=== PATIENT | male | born 1960 | race Caucasian/White ===

== ENCOUNTER 2021-08-31 08:46 | Day surgery (SDC) | payer BC ==
[2021-08-28 12:05] LABS: Absolute Lymphocytes (CBC) 1.3 K/uL (0.7-4.9); Hematocrit 42.5 % (39.6-49.0); Lymphocytes % 19.5 % (15.3-44.8); MCV 85.8 fL (80-100); MPV 7.9 fL (7.6-11.3); RBC Red Blood Cell Count 4.96 M/uL (4.33-5.43)
[2021-08-28 12:16] LABS: SARS-CoV-2 Antigen Rapid Res Negative (Negative)
[2021-08-28 12:18] LABS: Potassium 4.1 mmol/L (3.5-5.1)
[2021-08-31] MEDS ORDERED: CEFAZOLIN 2 GM IN 0.9% NACL 2 GM/100 ML BAG ONE (08:59)
[2021-08-31] MEDS ORDERED: Ringers Lactate 1,000 ML IV ONE ×2 (08:59→12:40)
[2021-08-31] MEDS ORDERED: BUPIVACA 0.5%/EPI 0.0005%/PF 30 ML VIAL ONE (10:13)
[2021-08-31] MEDS ORDERED: CELECOXIB 100 MG CAPSULE ONE (10:40)
[2021-08-31] MEDS ORDERED: ACETAMINOPHEN 500 MG TAB ONE (10:41)
[2021-08-31] MEDS ORDERED: MIDAZOLAM HCL 2 MG/2 ML INJ ONE (11:20)
[2021-08-31] MEDS ORDERED: propofoL 200 MG/20 ML VIAL IV ONE (11:20)
[2021-08-31] MEDS ORDERED: LIDOCAINE 1% MPF 5 ML VIAL ONE (11:20)
[2021-08-31] MEDS ORDERED: FENTANYL CITR 100 MCG/2 ML ONE (11:20)
[2021-08-31] MEDS ORDERED: NS 0.9% VIAL 10 ML ONE ×2 (11:33→12:15)
[2021-08-31] MEDS ORDERED: dexAMETHasone 10 MG/ML VIAL ONE (11:47)
[2021-08-31] MEDS ORDERED: KETOROLAC 30 MG/ML INJ ONE (11:51)
[2021-08-31] MEDS ORDERED: ONDANSETRON 4 MG/2 ML VIAL ONE (11:51)
[2021-08-31] MEDS ORDERED: EPHEDRINE SULF 50 MG/ML VIAL ONE (12:15)
[2021-08-31] MEDS ORDERED: LIDOCAINE 1% MPF 2 ML AMPULE ONE (12:43)
--- NOTE | 2021-08-31 12:49 | EKG ---
Test Date: 2021-08-28 Test Time: 11:44:43 [employer]: KAY MEASUREMENT RESULTS: Intervals: Rate: 66 AR: 140 QRSD: 104 QT: 394 QTc: 413 [place]: P: 28 AR: 140 QRS: 12 T: 46 INTERPRETIVE STATEMENTS: Normal sinus rhythm Normal ECG Compared to ECG 03/16/2019 14:56:04 No significant changes Electronically Signed On 08-31-21 12:45:18 CDT by Kameron Loyola
--- NOTE | 2021-08-31 13:09 | P.OP ---
Preoperative diagnosis: Recurrent RIGHT incarcerated inguinal hernia Postoperative diagnosis: Recurrent RIGHT incarcerated inguinal hernia Primary procedure: Open RIGHT inguinal hernia repair with mesh Anesthesia: GETA + Local Estimated blood loss: <5cc Specimen: cord lipoma Findings: pantaloon hernia, anatomy distorted by scar Complications: None Implants: Bard Perfix Medium hernia plug and patch Transferred to: Recovery Room Condition: Good
[2021-08-31] MEDS ORDERED: HYDROMORPHONE HCL 1 MG/ML INJ ONE (13:42)
[2021-08-31 14:40] VITALS: BP 134/99; TEMP 96.3; O2SAT 94
[2021-08-31] MEDS ORDERED: HYDROCODONE/APAP 5/325 MG TAB PO ONE (15:00)
--- NOTE | 2021-09-01 00:36 | OP ---
Date of Procedure: 08/31/2021 Surgeon: Daniel Galindo MD, Preoperative Diagnosis: Recurrent right incarcerated inguinal hernia. Postoperative Diagnosis: Recurrent right incarcerated inguinal hernia. Procedure Performed: Open right inguinal hernia repair with mesh. Anesthesia: General endotracheal plus local with 0.5% Marcaine with epinephrine. Estimated Blood Loss: Less than 5 cc. Specimen: Cord lipoma. Findings: Combined direct indirect/Pantaloon type inguinal hernia on the right, significant scar dis torted the normal anatomic landmarks. In addition, the external oblique aponeurosis was essentially obliterated. Complications: None. Implants: Bard medium PerFix plug and patch hernia repair system. Disposition: The patient was transferred to the recovery room in good condition. Procedure In Detail: After informed consent was obtained, the patient was brought to the operating r oom prepped and draped in the usual sterile fashion. After adequate anesthesia was achieved, an area of the right inguinal area was anesthetized with 0.5% Marcaine and sharply incised with a 15 blade d own through previous incision and dissection continued down using electrocautery to expose the remnan t of the external oblique aponeurosis, which was essentially replaced by scar tissue. This was opene d sharply using a 15 blade down to subcutaneous tissues. I then opened the remainder of the scar tis margy using electrocautery. The ilioinguinal nerve was not visualized through the significant scar tis margy, which was appreciated in the area. I encircled the spermatic cord structures. A large cord lip loyd was emanating from the cord structures. This was dissected free using electrocautery and ligated using a 2-0 Vicryl suture in a stick tie and reduced to the preperitoneal position of the indirect i nguinal hernia. At this point, a defect in the floor of the inguinal canal was appreciated consisten t with a direct hernia. This was dissected circumferentially free from all surrounding tissues and t he tissue was then inspected and found to be viable at this point. The spermatic cord and structures were protected throughout the procedure. At this point, I brought in a medium Bard PerFix plug syst em and placed it in the preperitoneal space of the indirect inguinal hernia and unfurled it at this p oint, securing it circumferentially around using 2-0 PDS suture with good position of the mesh. At t his point, the area was irrigated and then dried. At this point, I then turned my attention to the d irect inguinal hernia, which was reduced. I then placed several 2-0 PDS sutures to secure the mesh, which was the patch after being sized appropriately to the pubic tubercle medially and then on the me dial and lateral shelving edge of the internal oblique aponeurosis as well as the underside of the in guinal ligament and I reconstituted the deep inguinal ring at this point. At this point, the hernia was reduced in its entirety without any additional measures. Hernias were imbricated and as such, no hernia sacs were ligated at this point. The area was copiously irrigated. I then closed the residu al external oblique aponeurosis with a running 3-0 Vicryl suture and the deep dermal layer was closed with interrupted 3-0 Vicryl suture and the skin was closed with 4-0 Monocryl in a running fashion. Dermabond placed on top. The patient tolerated the procedure without evidence of complication and tr ansferred to PACU in good condition. All counts were correct at the end of the case. DEIDRE/SHITAL Voice ID: [id number] Report ID: [id number]
== END 2021-08-31 15:39 | disposition home or self-care (01) ==
LOC: OR 08:46
PROVIDERS: ATTEND Surgery
PROC: 0YU50JZ Supplement Right Inguinal Region with Synthetic Substitute, Open Approach (ICD-10-PCS; principal; 2021-08-31 11:30)
DX: K40.91 Unilateral inguinal hernia, without obstruction or gangrene, recurrent (principal); Z20.822 Contact with and (suspected) exposure to COVID-19
CPT/HCPCS: 93005; 85025; 80048; 36415; 82947; 88302; 87811; 49520; J2704; J2250; J3010; J1100; J1170; J0690; J7120 ×2; J2405

== ENCOUNTER 2021-09-15 08:23 | Emergency (ER) | payer BC ==
[2021-09-15] MEDS ORDERED: MECLIZINE HCL 12.5 MG TAB ONE (08:59)
[2021-09-15 09:16] LABS: Albumin 3.8 g/dL (3.4-5.0); Bilirubin Direct 0.1 mg/dL (0-0.2); Bilirubin Total 0.5 mg/dL (0.2-1.0); Magnesium 2.1 mg/dL (1.8-2.4); Potassium 3.8 mmol/L (3.5-5.1); Protein, Total 8.2 g/dL (6.4-8.2); Troponin High Sensitivity 5.4 pg/mL (<58.9)
[2021-09-15 09:26] LABS: Absolute Lymphocytes (CBC) 1.1 K/uL (0.7-4.9); Hematocrit 44.2 % (39.6-49.0); Lymphocytes % 16.5 % (15.3-44.8); MCV 83.8 fL (80-100); MPV 7.9 fL (7.6-11.3); RBC Red Blood Cell Count 5.27 M/uL (4.33-5.43)
--- NOTE | 2021-09-15 09:26 | RAD REPORT ---
EXAM DESCRIPTION: RAD - Chest Single View - 09/15/2021 9:17 am CLINICAL HISTORY: dizziness, hemptysis COMPARISON: Portable January 2009 TECHNIQUE: AP portable chest image was obtained 09/15/2021 9:17 am . FINDINGS: Lung volumes are low. No peripheral mass or consolidation. Left base is slightly hazy. Tala or imaging showed scarring in the lower left lung field. When adjusting for under penetrated techniqu e and lower lung volume, left base is not clearly different. Right hilar region is accentuated probab ly due to low lung volume. Heart and vasculature are normal. No measurable pleural effusion and no pn eumothorax. No acute bony abnormality seen. No acute aortic findings suspected. IMPRESSION: As detailed above, no acute cardiopulmonary finding seen when adjusting for differences in inspiration and film technique. If the patient's hemoptysis remains unexplained, CT chest imaging could be performed to evaluate for possible mediastinal mass or endobronchial lesion.
[2021-09-15 09:41] LABS: Protime INR 1.14
--- NOTE | 2021-09-15 11:00 | RAD REPORT ---
EXAM DESCRIPTION: CT - Head Brain Wo Cont - 09/15/2021 10:27 am CLINICAL HISTORY: dizziness COMPARISON: Head Brain Wo Cont dated 03/16/2019 TECHNIQUE: Axial 5 mm thick images of the head were obtained without IV contrast. All CT scans are performed using dose optimization technique as appropriate and may include automated exposure control or mA/KV adjustment according to patient size. FINDINGS: No intracranial hemorrhage, mass, edema or shift of mid-line structures. No acute infarcti on changes seen. No abnormal extra-axial fluid collections. No significant atrophy changes are presen t. Ventricles are normal in size. No significant chronic ischemic change. Intracranial findings are s imilar to the 2019 comparison. Mastoid air cells and visualized portions of the paranasal sinuses are clear. No acute bony findings. IMPRESSION: Negative noncontrast CT head examination for acute finding. No significant change from the 2020 comparison.
--- NOTE | 2021-09-15 11:10 | RAD REPORT ---
EXAM DESCRIPTION: CT - Chest For Pe Angio - 09/15/2021 10:29 am CLINICAL HISTORY: hemoptysis COMPARISON: Chest Single View dated 09/15/2021 TECHNIQUE: Dynamically enhanced 3 mm thick images of the chest were obtained during administration o f approximately 150mL Isovue 370 IV contrast. Coronal and oblique MIP reconstruction images were gene rated and reviewed. Exam utilizes a protocol to evaluate the pulmonary arterial tree. All CT scans are performed using dose optimization technique as appropriate and may include automated exposure control or mA/KV adjustment according to patient size. FINDINGS: No pulmonary emboli are identified. The aorta as imaged shows no acute or suspicious finding. No pericardial thickening or effusion. In the anterior superior aspect of the right upper lobe (image 35/134) there is a 2.7 cm AP x 2.1 cm TR lobulated mass. There is spiculation seen along the anterior superior aspect. A 6 mm nodule is pre sent in the right middle lobe. There is bilateral dependent atelectasis. In the posterolateral left c hest there is a pleural based elliptically shaped mass measuring 4.1 cm CC x 4.5 cm AP x 2.7 cm TR. T he adjacent fourth rib shows bone loss along the inner cortex. There is adjacent pleural thickening p resent. No pleural effusion or pleural thickening. Approximately 3.5 centimeter area of confluent abnormal soft tissue is present in the right hilum ext ending superiorly towards the previously detailed pulmonary nodule. This is along the anterior aspect of the right mainstem bronchus. This is likely either a primary mass or summation of multiple hilar lymph nodes. No large endobronchial lesion identifiable. No abnormal axillary lymphadenopathy. Limited upper abdomen imaging shows no adrenal mass. IMPRESSION: No pulmonary emboli identified. Approximately 4 centimeter elliptically shaped pleural-based mass upper left chest with erosive liao e to the adjacent fourth rib.Malignant etiology is favored. Right upper lobe spiculated and lobulated 2.7 cm mass could be primary or metastatic. Approximately 3.5 cm area of confluent lymphadenopathy or primary mass of the right hilum.
--- OUTSIDE RECORDS SUMMARY | 2021-09-15 11:28 | XMS REPORT | Continuity of Care Document ---
:1960 Author Organization [facility] t Address [address] [place] [address] [address]. [address]. [address] [place] [address] Care Team Providers Name Role Phone Vlad Christopher MD Primary Care Physician WANDA PEPE Attending Clinician Unavailable SISSON_Keren Attending Clinician Unavailable Leonard Cabrera Attending Clinician [phone] JAMES ARELLANO Attending Clinician Unavailable James Norris Attending Clinician DANIELLA ROSE Attending Clinician Unavailable Lab, Adc Fam Pob I Attending Clinician Unavailable Daniella Moran Attending Clinician Doctor Unassigned, [place] Attending Clinician Unavailable DEBORAH_Keren Admitting Clinician Unavailable Payers Payer Name Policy Type Policy Number Effective Date Expiration Date [place] PPO/POS - [employer] [id number] 2005 2018 00:00:00 00:00:00 PPO/EPO - BCBS [id number] [facility] [id number] 2021 ADVANTAGE (O) 00:00:00 [facility] [id number] 2018 00:00:00 Problems Condition Condition Condition Status Onset Resolution Last Treating Co mments Source Name Details Category Date Date Treatment Clinician Date Nocturnal Nocturnal Disease Active [facility] enuresis enuresis 1-17 Colleg e 00:00: of 00 Medicin e Kidney Kidney Disease Active 2010-02 [facility] stone stone 2-13 College 00:00: of 00 Medicin e Unspecifie Unspecifie Disease Active 2009-02 [facility] 14 [facility] essential essential 00:00: of hypertensi hypertensi 00 Me dicin on on e Bladder Bladder Disease Active 2009-02 [facility] cancer cancer 2-14 [facility] (HCCode) (HCCode) 00:00: of 00 Medicin e Pulmonary Pulmonary Disease Active 2009-02 [facility] nodule nodule 214 [place] 00:00: of 00 Medicin e Allergies, Adverse Reactions, Alerts Allergy Allergy Status Severity Reaction(s) Onset Inactive Treating Comm ents Source Name Type Date Date Clinician NO KNOWN Drug Active [facility] ALLERGIE Class ity of [facility] Social History Social Habit Start Date Stop Date Quantity Comments Source History of tobacco Cigarette Smoker [facility] use of Medicine Cigarettes smoked 2021-07-14 2021-07-14 [facility] current (pack per 00:00:00 00:00:00 of Medi day) - Reported Cigarette 2021-07-14 2021-07-14 [facility] pack-years 00:00:00 00:00:00 of Medicine Tobacco use and 2021-07-14 2021-07-14 Smokeless tobacco [facility] exposure 00:00:00 00:00:00 non-user of Medicine Alcohol intake 2021-07-14 2021-07-14 Current [facility] Col lege 00:00:00 00:00:00 non-drinker of of Medicin e alcohol (finding) Tobacco Comment 2021-07-14 2021-07-14 quit 11 years ago [facility] 00:00:00 00:00:00 of Medicine Exposure to 2021-07-03 2021-07-13 Not sure [facility] Natalya e SARS-CoV-2 (event) 00:00:00 13:26:00 of Med icine Sex [birth year] [facility] Co llege 00:00:00 00:00:00 of Medicine Smoking Status Start Date Stop Date Source Unknown if ever smoked [facility] Ex-smoker 2021-07-14 00:00:00 2021-07-14 00:00:00 [facility] Keren olleparul of Medicine Medications Ordered Filled Start Stop Current Ordering Indication Dosage Frequency Signature Comments Components Source Medication Medication Date Date Medication? Clinician (SIG) Name Name lisinopril Yes 10mg Take 10 mg [facility] (PRINIVIL, 5-31 by mouth Colle ge ZESTRIL) 10 08:20: daily. of MG tablet 56 Medicin e lisinopril Yes 10mg Take 10 mg [facility] (PRINIVIL, 1-14 by mouth Colle ge ZESTRIL) 10 19:07: daily. of MG tablet 43 Medicin e lisinopril Yes 10mg Take 10 mg [facility] (PRINIVIL, 1-14 by mouth Colle ge ZESTRIL) 10 13:07: daily. of MG tablet 43 Medicin e sildenafil 2009-02 Yes Use as [facility] citrate 2-14 directed. [facility] ([facility]) 00:00: of 100 MG 00 Medicin tablet e sildenafil 2009-02 Yes Use as [facility] citrate 2-14 directed. [facility] ([facility]) 00:00: of 100 MG 00 Medicin tablet e sildenafil 2009-02 Yes Use as [facility] citrate 2-14 directed. [facility] ([facility]) 00:00: of 100 MG 00 Medicin tablet e Vital Signs Vital Name Observation Time Observation Value Comments Source Systolic blood 2021-07-14 13:20:00 160 mm[Hg] [facility] Medicine Diastolic blood 2021-07-14 13:20:00 106 mm[Hg] [facility] Medicine Heart rate 2021-07-14 13:20:00 80 /min [facility] Body temperature 2021-07-14 13:20:00 36.44 [place] [facility] Body height 2021-07-14 13:20:00 185.4 cm [facility] Body weight 2021-07-14 13:20:00 97.523 kg [facility] BMI 2021-07-14 13:20:00 28.37 kg/m2 [facility] Systolic blood 2020-02-28 19:07:00 132 mm[Hg] [facility] Medicine Diastolic blood 2020-02-28 19:07:00 88 mm[Hg] [facility] Medicine Heart rate 2020-02-28 19:07:00 74 /min [facility] Respiratory rate 2020-02-28 19:07:00 17 /min [facility] Body height 2020-02-28 19:07:00 185.4 cm [facility] Body weight 2020-02-28 19:07:00 97.07 kg [facility] BMI 2020-02-28 19:07:00 28.23 kg/m2 [facility] Procedures Procedure Date / Time Performed Performing Clinician Sour e AMB REF TO GENERAL 2021-07-14 09[facility] AMB REF TO GENERAL 2021-07-14 09:35:21 [facility] Plan of Care Planned Activity Planned Date Details Comments Source Future Scheduled 2021-07-14 Screening for malignant [facility] Test 08:20:47 neoplasm of colon of Medicin e (procedure) [code = 829211474] Future Scheduled 2021-07-14 COVID-19 Vaccine (#1) [facility] Test 08:20:47 [code = COVID-19 of Medicine Vaccine (#1)] Future Scheduled 2021-07-14 TETANUS SHOT (ADULT) [facility] College Test 08:20:47 [code = TETANUS SHOT of Medi cine (ADULT)] Future Scheduled 2021-07-14 BMI FOLLOW UP PLAN [facility] College Test 08:20:47 [code = BMI FOLLOW UP of Med icine PLAN] Future Scheduled 2021-07-14 Hepatitis C screening [facility] Test 08:20:47 (procedure) [code = of Medic ine [id number]] Future Scheduled 2021-07-14 Human immunodeficiency B [facility] Test 08:20:47 virus screening of Medicine (procedure) [code = 263984422] Future Scheduled 2021-07-14 ZOSTER VACCINE (1 of 2) [facility] Test 08:20:47 [code = ZOSTER VACCINE of Me dicine (1 of 2)] Future Scheduled 2021-07-14 FLU VACCINE > 6 MONTHS B [facility] College Test 08:20:47 [code = FLU VACCINE > 6 of M edicine MONTHS] Future Scheduled 2021-02-26 Screening for malignant [facility] Test 07:07:14 neoplasm of colon of Medicin e (procedure) [code = 366089770] Future Scheduled 2021-02-26 COVID-19 Vaccine (1) [facility] Test 07:07:14 [code = COVID-19 of Medicine Vaccine (1)] Future Scheduled 2021-02-26 TETANUS SHOT (ADULT) [facility] Test 07:07:14 [code = TETANUS SHOT of Medi cine (ADULT)] Future Scheduled 2021-02-26 BMI FOLLOW UP PLAN [facility] Test 07:07:14 [code = BMI FOLLOW UP of Med icine PLAN] Future Scheduled 2021-02-26 Hepatitis C screening [facility] Test 07:07:14 (procedure) [code = of Medic ine [id number]] Future Scheduled 2021-02-26 Human immunodeficiency [facility] Test 07:07:14 virus screening of Medicine (procedure) [code = 548827615] Future Scheduled 2021-02-26 ZOSTER VACCINE (1 of 2) [facility] Test 07:07:14 [code = ZOSTER VACCINE of Me dicine (1 of 2)] Future Scheduled 2021-02-26 FLU VACCINE > 6 MONTHS [facility] Test 07:07:14 [code = FLU VACCINE > 6 of M edicine MONTHS] Future Scheduled PSA ULTRASENSITIVE Ordered: [facility] Test [code = 62792-3] 02/28/2020 of Medicine Future Scheduled TESTOSTERONE, Ordered: [facility] Col lege Test FREE/TOTAL SHGB [code = 02/28/2020 of M edicine NOCPT] Future Scheduled COLON CANCER SCREENING: [facility] Test COLONOSCOPY [code = of Medic ine COLON CANCER SCREENING: COLONOSCOPY] Future Scheduled COVID-19 Vaccine [facility] Test Evaluation [code = of Medici ne COVID-19 Vaccine Evaluation] Future Scheduled TETANUS SHOT (ADULT) [facility] Test [code = TETANUS SHOT of Medi cine (ADULT)] Future Scheduled BMI FOLLOW UP PLAN [facility] Test [code = BMI FOLLOW UP of Med icine PLAN] Future Scheduled HEPATITIS C SCREENING [facility] [employer] Test [code = HEPATITIS C of Medic ine SCREENING] Future Scheduled HIV SCREENING [code = [facility] HIV SCREENING] of Medicine Future Scheduled ZOSTER VACCINE (1 of 2) [facility] Test [code = ZOSTER VACCINE of Me dicine (1 of 2)] Future Scheduled FLU VACCINE > 6 MONTHS [facility] Test [code = FLU VACCINE > 6 of M edicine MONTHS] Encounters Start End Encounter Admission Attending Care Care Encounter Source Date/Time Date/Time Type Type Clinicians Facility Department ID 2021-07-14 2021-07-15 Office TAYLOR PEPE [id number] [facility] 08:01:06 03:55:06 Visit WANDA AMBULATOR [id number] College Y [id number] of [id number] Medi sondra 300 e 2021-04-03 2021-04-03 Outpatient AUGUSTA [facility] [id number] [place] 12:44:00 12:44:00 [facility] 2021-04-03 2021-04-03 [address] [facility] [id number] 00:00:00 00:00:00 Leonard [id number] 2021-02-26 2021-02-26 Office TAYLOR ARELLANO [id number] [facility] 11:11:58 12:14:32 Visit BASIL AMBULATOR [id number] College Y [id number] of [id number] Medi sondra 300 e 2020-02-28 2020-02-28 Office TAYLOR Arellano [id number] [facility] 12:38:35 13:08:35 Visit Basil AMBULATOR [id number] College Y [id number] of [id number] Medi sondra 300 e 2019-09-08 2019-09-08 Outpatient R [facility] [id number] Univers 15:00:00 15:00:00 [id number] [facility] 2019-09-08 2019-09-08 Outpatient R CHRISTO [facility] [id number] Univers 15:00:00 15:00:00 DANIELLA [facility] 2019-09-08 2019-09-08 Outpatient R [facility] [id number] Univers 14:40:00 14:40:00 [facility] 2019-09-08 2019-09-08 Laboratory Lab, Adc Fam Pob I [facility] 1.2. [id number] Univers 13:57:42 14:17:42 Only Christo Daniella [facility] [id number] ity of [place] [id number] Wu as Profkeith [id number] [facility] [address] 2019-09-08 2019-09-08 Letter Doctor LENARD [id number] Univers 00:00:00 00:00:00 (Out) Unassigned, CLAUDIO 350.1.13.10 ity of [place] [facility] [id number] Wu as [id number] [place] [address] [address] Results This patient has no known results.
[2021-09-15] MEDS ORDERED: LORazepam 2 MG/ML VIAL ONE (11:56)
[2021-09-15] MEDS ORDERED: MORPHINE 4 MG/ML SYR ONE (11:57)
[2021-09-15] MEDS ORDERED: ONDANSETRON 4 MG/2 ML VIAL ONE (11:57)
[2021-09-16 01:18] VITALS: TEMP 97.9
[2021-09-16 01:32] VITALS: BP 127/90; O2SAT 96
--- NOTE | 2021-09-16 07:23 | EKG ---
Test Date: 2021-09-15 Test Time: 08:43:45 Lead Carpenter: BRIANDA MEASUREMENT RESULTS: Intervals: Rate: 75 MD: 140 QRSD: 102 QT: 376 QTc: 419 [place]: P: 61 MD: 140 QRS: 18 T: 72 INTERPRETIVE STATEMENTS: Normal sinus rhythm Normal ECG Compared to ECG 08/28/2021 11:44:43 No significant changes Electronically Signed On 09-16-21 07:19:36 CDT by Solitario Calderon
--- NOTE | 2021-09-16 10:08 | ER ---
Nurse's Notes [facility] Name: Benito Arana Age: 61 yrs Sex: Male : 1960 Arrival Date: 09/15/2021 Time: 08:25 Bed 7 Private MD: Vlad Christopher E Diagnosis: Hemoptysis;Lung Mass Presentation: 09/15 08:36 Chief complaint: Patient states: coughed up a couple blood clots last night , woke up iw with dizziness this morning , had recent hernia surgery [address] Galindo. Coronavirus screen: At this time, the client does not indicate any symptoms associated with coronavirus-19. Ebola Screen: Patient negative for fever greater than or equal to 101.5 degrees Fahrenheit, and additional compatible Ebola Virus Disease symptoms Patient denies exposure to infectious person. Patient denies travel to an Ebola-affected area in the 21 days before illness onset. No symptoms or risks identified at this time. Initial Sepsis Screen: Does the patient meet any 2 criteria? No. Patient's initial sepsis screen is negative. Does the patient have a suspected source of infection? No. Patient's initial sepsis screen is negative. Risk Assessment: Do you want to hurt yourself or someone else? Patient reports no desire to harm self or others. Onset of symptoms was September 15, 2021. 08:36 Method Of Arrival: Ambulatory iw 08:36 Acuity: KAMERON 3 iw Triage Assessment: 12:30 General: Appears in no apparent distress. comfortable, Behavior is cooperative, bp appropriate for age, anxious. Pain: Denies pain. Historical: - Allergies: 09:25 No Known Allergies; tw2 - Home Meds: 09:25 lisinopril Oral [Active]; tw2 - PMHx: 09:25 Hypertension; tw2 - Immunization history:: Adult Immunizations. - Social history:: Smoking status: . Screenin:44 Abuse screen: Denies threats or abuse. Nutritional screening: No deficits noted. tw2 Tuberculosis screening: No symptoms or risk factors identified. Fall Risk None identified. Assessment: 09:26 Reassessment: Patient appears in no apparent distress at this time. No changes from tw2 previously documented assessment. Patient and/or family updated on plan of care and expected duration. Pain level reassessed. Patient is alert, oriented x 3, equal unlabored respirations, skin warm/dry/pink. 10:43 Reassessment: Patient appears in no apparent distress at this time. Patient and/or tw2 family updated on plan of care and expected duration. Pain level reassessed. Patient is alert, oriented x 3, equal unlabored respirations, skin warm/dry/pink. Patient states feeling better. Patient states symptoms have improved. 11:34 Reassessment: No changes from previously documented assessment. Patient and/or family tw2 updated on plan of care and expected duration. Pain level reassessed. Patient is alert, oriented x 3, equal unlabored respirations, skin warm/dry/pink. provider at bedside at this time. 12:27 Reassessment: PT D/C HOME VIA W/C WITH FAMILY, DX WITH LUNG MASS AND HEMOPTYSIS. bp Vital Signs: 09:24 BP 144 / 97; Pulse 75; Resp 17; Pulse Ox 97% on R/A; tw2 09:39 Temp 97.9(TE); tw2 10:43 BP 144 / 109; Pulse 71; Resp 18; Pulse Ox 99% on R/A; tw2 11:34 BP 145 / 110; Pulse 75; Resp 15; Pulse Ox 98% on R/A; tw2 12:27 BP 127 / 90; Pulse 77; Resp 16; Pulse Ox 96% ; bp ED Course: 08:25 Patient arrived in ED. mr 08:26 Vlad Christopher MD is Private Physician. mr 08:26 Ty Richard PA is PHCP. jmm 08:26 Christopher Sanchez MD is Attending Physician. jmm 08:32 Bashir Daly, RN is Primary Nurse. bp 08:37 Triage completed. iw 08:37 Arm band placed on. iw 08:44 EKG completed in triage. Results shown to MD. Antipyretics given from triage as ordered tw2 by an ER provider. 08:45 Bed in low position. Call light in reach. pvc monitor on. Pulse ox on. NIBP on. tw2 08:45 Inserted saline lock: 20 gauge in right antecubital area, using aseptic technique. bp Blood collected. 09:19 XRAY Chest (1 view) In Process Unspecified. EDMS 10:29 CT Head Brain wo Cont In Process Unspecified. EDMS 10:31 CT Chest For PE Angio In Process Unspecified. EDMS 12:03 Gregg, Sean, MD is Referral Physician. m 12:27 No provider procedures requiring assistance completed. IV discontinued, intact, bp bleeding controlled, No redness/swelling at site. Pressure dressing applied. Administered Medications: 08:55 Drug: Meclizine 25 mg Route: PO; tw2 09:39 Follow up: Response: No adverse reaction tw2 11:53 Drug: morphine 4 mg Route: IVP; Infused Over: 4 mins; Site: right antecubital; bp 12:27 Follow up: Response: Pain is decreased bp 11:53 Drug: Zofran (Ondansetron) 4 mg Route: IVP; Site: right antecubital; bp 12:27 Follow up: Response: No adverse reaction bp 11:53 Drug: Ativan (LORazepam) 0.5 mg Route: IVP; Site: right antecubital; bp 12:26 Follow up: Response: No adverse reaction bp Medication: 09:25 VIS not applicable for this client. tw2 Outcome: 12:03 Discharge ordered by . jmm 12:29 Discharged to home via wheelchair. bp 12:29 Condition: stable 12:29 Instructed on discharge instructions, follow up and referral plans. 12:30 Patient left the ED. bp Signatures: Dispatcher [employer] EDMS Ty Richard PA PA mitzi MarquezaJusta Amber Jameson, RN TORITO iw Susie Gaytan RN RN tw2 Bashir Daly RN RN bp
--- NOTE | 2021-09-16 10:08 | EDPHYS ---
Physician Documentation [facility] Name: Benito Arana Age: 61 yrs Sex: Male : 1960 Arrival Date: 09/15/2021 Time: 08:25 Bed 7 Private MD: Vlad Christopher E ED Physician Christopher Sanchez HPI: 09/15 08:32 This 61 yrs old Male presents to ER via Ambulatory with complaints of Coughing up jmm Blood, Dizziness. 08:32 The patient has shortness of breath at rest. Onset: The symptoms/episode began/occurred jmm acutely, this morning. Duration: The symptoms are continuous. The patient's shortness of breath is aggravated by coughing. This is a 61-year-old male with a history of hypertension the presents emerged department with complaints of shortness of breath, dizziness beginning this morning. Patient states after an episode of coughing, he coughed up blood clots. Patient is 2 weeks status post inguinal hernia repair. Patient also has complaints of dizziness which he states are similar to previous episodes of vertigo.. Historical: - Allergies: 09:25 No Known Allergies; tw2 - Home Meds: 09:25 lisinopril Oral [Active]; tw2 - PMHx: 09:25 Hypertension; tw2 - Immunization history:: Adult Immunizations. - Social history:: Smoking status: . ROS: 08:32 Cardiovascular: Negative for chest pain, palpitations, and edema. jmm 08:32 Constitutional: Positive for fatigue. 08:32 Respiratory: Positive for cough, hemoptysis, shortness of breath. 08:32 Neuro: Positive for dizziness. 08:32 All other systems are negative. Exam: 08:32 Constitutional: This is a well developed, well nourished patient who is awake, alert, jmm and in no acute distress. Head/Face: atraumatic. Eyes: EOMI, no conjunctival erythema appreciated ENT: Moist Mucus Membranes Neck: Trachea midline, Supple Chest/axilla: Normal chest wall appearance and motion. 08:32 Cardiovascular: Rate: normal, Rhythm: regular. 08:32 Respiratory: the patient does not display signs of respiratory distress, Respirations: normal, Breath sounds: are clear throughout. 08:32 Abdomen/GI: Inspection: abdomen appears normal, Bowel sounds: normal, Palpation: abdomen is soft and non-tender, in all quadrants, Surgical incision noted to the groin, no purulent drainage or surrounding erythema appreciated. 08:32 Musculoskeletal/extremity: ROM: intact in all extremities. 08:32 Skin: Appearance: Color: normal in color. 08:32 Neuro: Orientation: is normal, Mentation: is normal, Memory: is normal. 08:32 Psych: Behavior/mood is pleasant, cooperative. 08:45 ECG was reviewed by the Attending Physician. [facility] Vital Signs: 09:24 BP 144 / 97; Pulse 75; Resp 17; Pulse Ox 97% on R/A; tw2 09:39 Temp 97.9(TE); tw2 10:43 BP 144 / 109; Pulse 71; Resp 18; Pulse Ox 99% on R/A; tw2 11:34 BP 145 / 110; Pulse 75; Resp 15; Pulse Ox 98% on R/A; tw2 12:27 BP 127 / 90; Pulse 77; Resp 16; Pulse Ox 96% ; bp MDM: 08:32 Patient medically screened. [facility] 12:02 Data reviewed: vital signs, nurses notes. Counseling: I had a detailed discussion with [facility] the patient and/or guardian regarding: the historical points, exam findings, and any diagnostic results supporting the discharge/admit diagnosis, lab results, radiology results, the need for outpatient follow up, to return to the emergency department if symptoms worsen or persist or if there are any questions or concerns that arise at home. 12:02 ED course: Patient states feeling much better. Dizziness is resolved. CT of the head is [facility] negative. I do not currently suspect a central cause of vertigo. CTA of the chest did reveal lung masses which I discussed with the patient. Patient states having a previous history of known lung masses which were being evaluated by his PCP but recently he states he has not received any repeat imaging. Patient advised to follow-up with pulmonology for further evaluation otherwise given strict return precautions. Patient understood agrees plan of care.. 09/15 08:42 Order name: Basic Metabolic Panel; Complete Time: 09:21 [facility] 09/15 08:42 Order name: CBC with Diff; Complete Time: 09:29 [facility] 09/15 08:42 Order name: LFT's; Complete Time: 09:21 [facility] 09/15 08:42 Order name: Magnesium; Complete Time: 09:21 [facility] 09/15 08:42 Order name: NT PRO-BNP; Complete Time: 09:21 [facility] 09/15 08:42 Order name: PT-INR; Complete Time: 09:43 [facility] 09/15 08:42 Order name: Troponin HS; Complete Time: 09:21 [facility] 09/15 08:42 Order name: XRAY Chest (1 view); Complete Time: 09:29 [facility] 09/15 08:42 Order name: D-Dimer; Complete Time: 10:01 [facility] 09/15 10:02 Order name: CT Head Brain wo Cont; Complete Time: 11:02 [facility] 09/15 10:02 Order name: CT Chest For PE Angio; Complete Time: 11:14 [facility] 09/15 08:42 Order name: EKG; Complete Time: 08:44 [facility] 09/15 08:42 Order name: Cardiac monitoring; Complete Time: 08:45 [facility] 09/15 08:42 Order name: EKG - Nurse/Tech; Complete Time: 08:45 [facility] 09/15 08:42 Order name: IV Saline Lock; Complete Time: 08:45 [facility] 09/15 08:42 Order name: Labs collected and sent; Complete Time: 08:45 [facility] 09/15 08:42 Order name: O2 Per Protocol; Complete Time: 08:45 [facility] 09/15 08:42 Order name: O2 Sat Monitoring; Complete Time: 08:45 jmm EC:45 Rate is 75 beats/min. Rhythm is regular. QRS [place] is Normal. IA interval is normal. QRS jmm interval is normal. QT interval is normal. No Q waves. T waves are Normal. No ST changes noted. Reviewed by me. Administered Medications: 08:55 Drug: Meclizine 25 mg Route: PO; tw2 09:39 Follow up: Response: No adverse reaction tw2 11:53 Drug: morphine 4 mg Route: IVP; Infused Over: 4 mins; Site: right antecubital; bp 12:27 Follow up: Response: Pain is decreased bp 11:53 Drug: Zofran (Ondansetron) 4 mg Route: IVP; Site: right antecubital; bp 12:27 Follow up: Response: No adverse reaction bp 11:53 Drug: Ativan (LORazepam) 0.5 mg Route: IVP; Site: right antecubital; bp 12:26 Follow up: Response: No adverse reaction bp Disposition Summary: 09/15/21 12:03 Discharge Ordered Location: Home [facility] Condition: Stable [facility] Diagnosis - Hemoptysis jmm - Lung Mass [facility]up[facility] - With: Sean Escobedo MD - When: 1 - 2 days - Reason: Recheck today's complaints, Continuance of care, Re-evaluation by your physician Discharge Instructions: - Discharge Summary Sheet [facility] - Hemoptysis jmm - Lung Mass [facility] Forms: - Medication Reconciliation Form [facility] - Thank You Letter [facility] - Antibiotic Education [facility] - Prescription Opioid Use [facility] Signatures: Dispatcher [employer] EDChristopher Atkinson MD MD cha Mickail, Joel, PA PA jmm Wise, Tara, RN RN tw2 Bashir Daly RN RN bp
== END 2021-09-15 12:30 | disposition home or self-care (01) ==
LOC: ER 08:23
DX: R04.2 Hemoptysis (principal); R91.8 Other nonspecific abnormal finding of lung field; I10 Essential (primary) hypertension; Z98.890 Other specified postprocedural states
CPT/HCPCS: 93005; 85025; 80048; 36415; 83735; 85610; 85379; 80076; 84484; 83880; 70450; 71275; 71045; 96375; 96374; 99284; Q9967; J8597; J2405